=== PATIENT | female | born 1975 | race Caucasian/White ===

== ENCOUNTER 2020-05-03 11:45 | Inpatient (IN) ==
[2020-05-03 13:21] LABS: Apearance,Urine Slightly Hazy (Clear); Bacteria,Urine Few /HPF (Few); Blood, Urine Negative (Negative); Glucose,Urine (UA) Negative (Negative); Ketones,Urine Negative (Negative); Mucus,Urine Occasional /LPF (Occasional); Nitrite,Urine Negative (Negative); Protein,Urine 30 MG/DL; RBC,Urine 1 /HPF (0-4); Squamous Epithelial Cell,Urine Few /HPF (0-10); Urine Color Amber (Yellow); Urine Specific Gravity 1.019 (1.001-1.035); WBC,Urine 6 /HPF (0-6)
[2020-05-03 13:23] LABS: Bilirubin,Urine Moderate mg/dL (Negative)
[2020-05-03 13:26] LABS: Basophils % 0.6 % (0.0-0.8); Eosinophils # 0.1 10*3/uL (0.0-0.87); Eosinophils % 1.1 % (0.00-10.9); Hematocrit 45.5 VOL% (35.7-47.0); Immature Granulocytes % 0.2 %; Immature Granulocytes Absolute 0.01 #; Lymphocytes # 1.5 10*3/uL (1.4-4.0); Lymphocytes % 28.7 % (21.3-54.2); Mean Corpuscular Volume 90.3 FL (87-102); Mean Platelet Volume 9.7 FL (9.6-12.0); Monocytes % 16.3 % (1.7-12.7); Neutrophils % 53.1 % (38.7-73.9); Platelet Count 234 T/CUMM (130-400); Red Blood Count 5.04 MC/CUMM (3.8-5.5); Red Cell Distribution Width 13.9 % (9.3-17.3); White Blood Count 5.2 T/CUMM (4-12)
[2020-05-03 13:57] LABS: Eosinophils 2 % (0-10); Lymphocytes 31 % (20-55); Platelet Estimate Normal; Segmented Neutrophils 51 % (50-85); Total Cells Counted 100
[2020-05-03 14:05] LABS: Albumin 3.2 G/DL (3.4-5.0); Bilirubin,Total 5.6 MG/DL (0.2-1.0); Calcium 8.8 MG/DL (8.5-10.1); Osmolality,Calculated 265.1 MOS/KG (273-304); Total Protein 7.2 G/DL (6.4-8.3)
[2020-05-03] MEDS ORDERED: SODIUM CHLORIDE 0.9% 1,000 ML IV STA (14:23)
[2020-05-03] MEDS ORDERED: KETOROLAC 30 MG/1 ML VIAL ONE (14:27)
[2020-05-03] MEDS ORDERED: KETOROLAC 30 MG/1 ML VIAL IV STA (14:27)
[2020-05-03] MEDS ORDERED: PIPERACILLIN/TAZOBACTAM 3,375 MG in SODIUM CHLORIDE 0.9% 100 ML IV SCH (16:00)
[2020-05-03] MEDS ORDERED: GLUCAGON 1 MG VIAL IM PRN (16:48)
[2020-05-03] MEDS ORDERED: DEXTROSE 50% 25 GM/50 ML VIAL IV PRN (16:48)
[2020-05-03] MEDS: ONDANSETRON 4 MG/2 ML VIAL IV PRN ×2 (17:13→21:28)
[2020-05-03] MEDS: MORPHINE 4 MG/1 ML VIAL IV PRN ×2 (17:13→21:29)
[2020-05-03] MEDS ORDERED: NICOTINE 14 MG/24 HR PATCH TRANSDERM PRN (17:25)
[2020-05-03] MEDS ORDERED: PIPERACILLIN/TAZOBACTAM 3,375 MG VIAL IV ONE (17:46)
[2020-05-03] MEDS: SODIUM CHLORIDE 0.9% 1,000 ML IV SCH (20:03)
[2020-05-04] MEDS ORDERED: KETOROLAC 15 MG/1 ML VIAL IV ONE (00:18)
[2020-05-04] MEDS: MORPHINE 4 MG/1 ML VIAL IV PRN ×3 (03:22→22:25)
[2020-05-04] MEDS: ONDANSETRON 4 MG/2 ML VIAL IV PRN (03:22)
[2020-05-04] MEDS: SODIUM CHLORIDE 0.9% 1,000 ML IV SCH ×3 (03:28→12:00)
[2020-05-04 06:18] LABS: Basophils % 0.7 % (0.0-0.8); Eosinophils % 0.7 % (0.00-10.9); Hematocrit 38.4 VOL% (35.7-47.0); Hemoglobin 12.9 GM/DL (12.0-16.0); Immature Granulocytes % 0.2 %; Immature Granulocytes Absolute 0.01 #; Lymphocytes # 2.9 10*3/uL (1.4-4.0); Lymphocytes % 50.6 % (21.3-54.2); Mean Corpuscular HGB Conc 33.6 GM/DL (32-36); Mean Corpuscular Volume 89.5 FL (87-102); Mean Platelet Volume 10.4 FL (9.6-12.0); Neutrophils % 33.8 % (38.7-73.9); Platelet Count 204 T/CUMM (130-400); Red Blood Count 4.29 MC/CUMM (3.8-5.5); Red Cell Distribution Width 14.1 % (9.3-17.3); White Blood Count 5.6 T/CUMM (4-12)
[2020-05-04 06:37] LABS: Calcium 7.9 MG/DL (8.5-10.1)
[2020-05-04 07:12] LABS: Band Neutrophils 2 % (0-10); Eosinophils 1 % (0-10); Lymphocytes 51 % (20-55); Platelet Estimate Normal; Segmented Neutrophils 31 % (50-85); Total Cells Counted 100
[2020-05-04 07:13] LABS: Anisocytosis 1+; Atypical Lymphocytes Few; Macrocytosis Slight
[2020-05-04 07:21] LABS: Albumin 2.4 G/DL (3.4-5.0); Bilirubin,Direct 3.98 MG/DL (0.0-0.20); Bilirubin,Indirect 2.1 MG/DL (0.0-1.0); Bilirubin,Total 6.1 MG/DL (0.2-1.0); Total Protein 5.5 G/DL (6.4-8.3)
[2020-05-04] MEDS ORDERED: PROMETHAZINE 25 MG/1 ML VIAL IM PRN (07:38)
[2020-05-04] MEDS: KETOROLAC 30 MG/1 ML VIAL IV PRN (07:57)
[2020-05-04] MEDS ORDERED: cefTRIAXone 1,000 MG in SYRINGE 1 EACH IV SCH (09:00)
[2020-05-04 10:41] LABS: Hepatitis B Core IgM Quant 0.15 Index; Hepatitis B Surface Ag Quant < 0.10 Index; Hepatitis B Surface Ag Result Negative (Negative); Hepatitis C Virus Ab Quant 0.08 Index; Hepatitis C Virus Ab Result Negative (Negative)
[2020-05-05] MEDS: IBUPROFEN 400 MG TABLET PO PRN ×2 (01:06→21:31)
[2020-05-05] MEDS: SODIUM CHLORIDE 0.9% 1,000 ML IV SCH ×3 (01:06→18:47)
[2020-05-05 06:15] LABS: INR 1.8; PT Patient Result 18.5 SECS (9.8-11.9)
[2020-05-05 06:34] LABS: Albumin 2.5 G/DL (3.4-5.0); Bilirubin,Indirect 1.5 MG/DL (0.0-1.0); Bilirubin,Total 7.5 MG/DL (0.2-1.0); Total Protein 5.8 G/DL (6.4-8.3)
[2020-05-05 06:36] LABS: Albumin 2.5 G/DL (3.4-5.0); Bilirubin,Total 7.4 MG/DL (0.2-1.0); Calcium 8.5 MG/DL (8.5-10.1); Osmolality,Calculated 268.8 MOS/KG (273-304); Total Protein 5.9 G/DL (6.4-8.3)
[2020-05-05] MEDS: KETOROLAC 30 MG/1 ML VIAL IV PRN ×2 (14:08→22:56)
[2020-05-06] MEDS: SODIUM CHLORIDE 0.9% 1,000 ML IV SCH ×2 (02:36→08:48)
[2020-05-06] MEDS: KETOROLAC 30 MG/1 ML VIAL IV PRN (05:51)
[2020-05-06 06:26] LABS: Albumin 2.2 G/DL (3.4-5.0); Bilirubin,Total 7.1 MG/DL (0.2-1.0); Calcium 7.9 MG/DL (8.5-10.1); Osmolality,Calculated 270.7 MOS/KG (273-304); Total Protein 5.5 G/DL (6.4-8.3)
[2020-05-06 06:31] LABS: PT Patient Result 11.1 SECS (9.8-11.9)
[2020-05-06 11:38] VITALS: BP 119/77
[2020-05-06] MEDS ORDERED: CALCIUM CARBONATE CHEW 500 MG TABLET PO PRN (11:50)
[2020-05-06] MEDS ORDERED: CALCIUM CARBONATE CHEW 500 MG TABLET PO ONE (11:50)
== END 2020-05-06 13:12 | disposition home or self-care (01) | DRG 442 ==
LOC: N.ED 11:45 → N.EDINP 16:48 → N.3E 19:16
PROVIDERS: ADMIT Hospitalist; ATTEND Hospitalist

== ENCOUNTER 2022-07-10 17:29 | Inpatient (IN) ==
[2022-07-10] MEDS ORDERED: HYDROmorphone 1 MG/1 ML SYRINGE IV STA (18:48)
[2022-07-10] MEDS ORDERED: ONDANSETRON 4 MG/2 ML VIAL IV STA (18:48)
[2022-07-10] MEDS ORDERED: SODIUM CHLORIDE 0.9% 1,000 ML IV STA (18:48)
[2022-07-10] MEDS ORDERED: KETOROLAC 30 MG/1 ML VIAL IV STA (18:48)
[2022-07-10] MEDS ORDERED: cefTRIAXone 1,000 MG in SODIUM CHLORIDE 0.9% 100 ML IV STA (19:09)
[2022-07-10] MEDS ORDERED: TAMSULOSIN 0.4 MG CAPSULE PO STA (19:09)
[2022-07-10 19:23] LABS: Basophils % 0.3 % (0.0-0.8); Eosinophils # 0.1 10*3/uL (0.0-0.87); Eosinophils % 1.1 % (0.00-10.9); Hematocrit 35.6 VOL% (35.7-47.0); Immature Granulocytes % 0.4 %; Immature Granulocytes Absolute 0.04 #; Lymphocytes # 1.3 10*3/uL (1.4-4.0); Lymphocytes % 11.8 % (21.3-54.2); Mean Corpuscular HGB Conc 33.7 GM/DL (32-36); Mean Corpuscular Volume 90.1 FL (87-102); Mean Platelet Volume 8.8 FL (9.6-12.0); Monocytes # 1.1 10*3/uL (0.11-0.8); Monocytes % 9.3 % (1.7-12.7); Neutrophils % 77.1 % (38.7-73.9); Platelet Count 255 T/CUMM (130-400); Red Blood Count 3.95 MC/CUMM (3.8-5.5); Red Cell Distribution Width 12.3 % (9.3-17.3); White Blood Count 11.3 T/CUMM (4-12)
[2022-07-10 19:50] LABS: Bacteria,Urine Few /HPF (Few); Bilirubin,Urine Negative (Negative); Blood, Urine Small mg/dL (Negative); Glucose,Urine (UA) Negative (Negative); Ketones,Urine Negative (Negative); Nitrite,Urine Negative (Negative); Protein,Urine Negative (Negative); RBC,Urine 1 /HPF (0-4); Squamous Epithelial Cell,Urine Occasional /HPF (0-10); Urine Appearance Slightly Hazy (Clear); Urine Color Straw (Yellow); Urine Specific Gravity 1.005 (1.001-1.035); Urine Urobilinogen < 2.0 eU/dL (<2.0)
[2022-07-10] MEDS ORDERED: ONDANSETRON 4 MG/2 ML VIAL IV PRN (19:56)
[2022-07-10] MEDS ORDERED: DOCUSATE SODIUM 100 MG CAPSULE PO PRN (19:56)
[2022-07-10] MEDS ORDERED: hydrALAZINE 20 MG/1 ML VIAL IV PRN (19:56)
[2022-07-10 20:01] LABS: Alanine Aminotransferase 19 U/L (13-56); Albumin 3.5 G/DL (3.4-5.0); Alkaline Phosphatase 58 U/L (45-117); Amylase 52 U/L (25-115); Aspartate Amino Transferase 12 U/L (0-37); Bilirubin,Total < 0.39 MG/DL (0.20-1.00); Blood Urea Nitrogen 8 MG/DL (7-18); Calcium 8.8 MG/DL (8.5-10.1); Carbon Dioxide 27 MMOL/L (21-32); Chloride 106 MMOL/L (98-107); Glucose 119 MG/DL (74-106); Osmolality,Calculated 275.5 MOS/KG (273-304); Potassium 3.8 MMOL/L (3.5-5.1); Sodium 139 MMOL/L (136-145); Total Protein 7.4 G/DL (6.4-8.2)
[2022-07-10] MEDS ORDERED: ENOXAPARIN 40 MG/0.4 ML SYRINGE SUBCUT SCH (21:00)
[2022-07-10] MEDS: SODIUM CHLORIDE 0.9% 1,000 ML IV SCH (22:49)
[2022-07-11] MEDS: MORPHINE 2 MG/1 ML SYRINGE IV PRN ×2 (05:32→21:57)
[2022-07-11] MEDS: SODIUM CHLORIDE 0.9% 1,000 ML IV SCH (05:32)
[2022-07-11 05:43] LABS: Basophils % 0.4 % (0.0-0.8); Eosinophils # 0.2 10*3/uL (0.0-0.87); Eosinophils % 2.2 % (0.00-10.9); Hematocrit 33.5 VOL% (35.7-47.0); Immature Granulocytes % 0.3 %; Immature Granulocytes Absolute 0.02 #; Lymphocytes # 2.2 10*3/uL (1.4-4.0); Lymphocytes % 32.1 % (21.3-54.2); Mean Corpuscular HGB Conc 32.8 GM/DL (32-36); Mean Corpuscular Volume 91.5 FL (87-102); Monocytes # 0.6 10*3/uL (0.11-0.8); Monocytes % 9.3 % (1.7-12.7); Neutrophils % 55.7 % (38.7-73.9); Platelet Count 233 T/CUMM (130-400); Red Blood Count 3.66 MC/CUMM (3.8-5.5); Red Cell Distribution Width 12.4 % (9.3-17.3); White Blood Count 6.8 T/CUMM (4-12)
[2022-07-11 06:05] LABS: Alanine Aminotransferase 16 U/L (13-56); Albumin 2.5 G/DL (3.4-5.0); Alkaline Phosphatase 47 U/L (45-117); Aspartate Amino Transferase 9 U/L (0-37); Bilirubin,Total < 0.39 MG/DL (0.20-1.00); Blood Urea Nitrogen 8 MG/DL (7-18); Calcium 8.2 MG/DL (8.5-10.1); Carbon Dioxide 25 MMOL/L (21-32); Chloride 113 MMOL/L (98-107); Glucose 89 MG/DL (74-106); Potassium 3.9 MMOL/L (3.5-5.1); Sodium 143 MMOL/L (136-145)
[2022-07-11] MEDS ORDERED: LIDOCAINE 2% 5 ML VIAL ONE (08:51)
[2022-07-11] MEDS ORDERED: propofoL 200 MG/20 ML VIAL IV ONE (08:51)
[2022-07-11] MEDS ORDERED: MIDAZOLAM 2 MG/2 ML VIAL ONE (08:52)
[2022-07-11] MEDS ORDERED: fentaNYL 100 MCG/2 ML VIAL ONE (08:52)
[2022-07-11] MEDS ORDERED: PANTOPRAZOLE 40 MG TABLET PO SCH (09:00)
[2022-07-11] MEDS ORDERED: TAMSULOSIN 0.4 MG CAPSULE PO SCH (09:00)
[2022-07-11] MEDS ORDERED: DEXAMETHASONE 4 MG/1 ML VIAL ONE (09:32)
[2022-07-11] MEDS ORDERED: SEVOFLURANE 1 UNIT/15 MINUTE INH ONE (09:32)
[2022-07-11] MEDS ORDERED: ONDANSETRON 4 MG/2 ML VIAL ONE (09:32)
[2022-07-11] MEDS ORDERED: cefTRIAXone 1,000 MG VIAL ONE (09:41)
[2022-07-11] MEDS ORDERED: PHENYLEPHRINE 1 MG/10 ML SYRINGE IV ONE (09:44)
[2022-07-11] MEDS ORDERED: diphenhydrAMINE 50 MG/1 ML VIAL IV PRN (10:00)
[2022-07-11] MEDS ORDERED: MEPERIDINE 25 MG/1 ML VIAL IV PRN (10:00)
[2022-07-11] MEDS ORDERED: ONDANSETRON 4 MG/2 ML VIAL IV PRN (10:00)
[2022-07-11] MEDS ORDERED: PROMETHAZINE INJ 25 MG in SODIUM CHLORIDE 0.9% 50 ML IV PRN (10:00)
[2022-07-11] MEDS ORDERED: HYDROmorphone 1 MG/1 ML SYRINGE IV PRN (10:00)
[2022-07-11 12:56] LABS: % Iron Saturation 12.9 % (18-50)
[2022-07-11 13:03] LABS: Folate 8.82 NG/ML (5.38-24.0)
[2022-07-11] MEDS ORDERED: cefTRIAXone 1,000 MG in SODIUM CHLORIDE 0.9% 100 ML IV SCH (20:00)
[2022-07-12] MEDS: SODIUM CHLORIDE 0.9% 1,000 ML IV SCH ×2 (03:17→03:18)
[2022-07-12] MEDS: MORPHINE 2 MG/1 ML SYRINGE IV PRN (06:20)
[2022-07-12 07:57] VITALS: BP 132/72
== END 2022-07-12 08:37 | disposition home or self-care (01) | DRG 661 ==
LOC: N.ED 17:29 → N.EDINP 19:54 → N.5E 20:44
PROVIDERS: ADMIT Internal Medicine; ATTEND Internal Medicine